=== PATIENT | male | born 1995 | race Two or more races ===

== ENCOUNTER 2022-02-19 06:27 | Emergency (ER) | payer OTHER, SELFPAY ==
[2022-02-19 06:34] VITALS: BP 152/94; PULSE 124; RESP 12; TEMP 36.8; O2SAT 99
[2022-02-19 07:00] VITALS: BP 135/91; PULSE 106; RESP 20; O2SAT 98
--- NOTE | 2022-02-19 07:04 | PC.NURSE ---
Report given to Louisa COLIN
--- NOTE | 2022-02-19 07:24 | ED.ALCOHOL ---
HPI - Alcohol General Chief Complaint: Alcohol Stated Complaint: ETOH withdrawal Time Seen by Provider: 02/19/22 07:15 Source: patient Mode of arrival: EMS Limitations: no limitations History of Present Illness HPI narrative: Patient is 26 years old male presents to the ED by ambulance because would like to stop drinking alcohol and is worried about developing seizure in the meantime. Patient was sober for 3 months, relapsed 1 month ago, drinking daily 8-10 beers a day, last drink was at 9 PM, this morning noticed that he have slight shaking fingers and is concerned about the possibility of developing seizure that is why he called 9 1. Patient had appointment with [facility] in 1 week. He is awake, alert and oriented x4, denies any fever, chills, nausea, vomiting, abdominal pain, headache. Related Data Allergies Allergy/AdvReac Type Severity Reaction Status Date / Time fentanyl AdvReac Unknown Verified 02/19/22 06:31 ketorolac [From Toradol] AdvReac Nose Bleed Verified 02/19/22 06:31 Review of Systems Review of Systems: All systems reviewed & are unremarkable except as noted in HPI and below Exam Narrative: General appearance: Well-developed, well-nourished Skin: Normal color Head: Normocephalic, nontraumatic Eyes: Clear conjunctiva ENT: Oropharynx normal, ears normal, nose normal Neck: Supple, nontender Chest and respiratory: Airway patent, no respiratory distress, no accessory muscle use Heart: Regular rate/rhythm Abdomen: Soft, nontender, no organomegaly, quiet bowel sounds Vascular: Normal peripheral pulses, normal capillary refill. Musculoskeletal: Normal range of motion, nontender back Neurologic: Alert and oriented ?3, [employer] is normal as tested, no gross motor deficit, light shaking hands Course Course Emergency Course: Patient decided to leave and continue alcohol withdrawal medication, he would like to quit drinking on his own, otherwise he is going back to drink until his appointment with [facility]. Vital Signs Vital signs: Vital Signs Temperature 36.8 C 02/19/22 06:34 Pulse Rate 124 H 02/19/22 06:34 Respiratory Rate 12 02/19/22 06:34 Blood Pressure 152/94 H 02/19/22 06:34 Pulse Oximetry 99 02/19/22 06:34 Temperature 36.8 C 02/19/22 06:34 Pulse Rate 124 H 02/19/22 06:34 Respiratory Rate 12 02/19/22 06:34 Blood Pressure 152/94 H 02/19/22 06:34 Pulse Oximetry 99 02/19/22 06:34 Critical Care Time Critical Care Time Critical Care Time: Yes Total Critical Care Time: 10 Discharge Plan Discharge Clinical Impression: Alcohol abuse Patient Disposition: Home, Self-Care Condition: Stable Instructions: Antibiotic Form, Abuse of Alcohol (ED) Additional Instructions: Return if symptoms are worsening , call your family physician for appointment, take Tylenol as as needed for aches and pain, continue home medications. Keep your appointment with [facility] Prescriptions: New lorazepam [Ativan] 1 mg tablet 1 mg PO TID PRN (Reason: alcohol withdrawal) Qty: 14 0RF thiamine HCl (vitamin B1) 50 mg tablet 50 mg PO DAILY Qty: 30 0RF multivitamin Tablet 1 tablet PO DAILY Qty: 14 0RF Follow-up/Referrals: Ramez,Justin Hemphill MD [Primary Care Provider] - Stand Alone Forms: Work/School Release IP
[2022-02-19] MEDS: THIAMINE HCL 200 MG/2 ML VIAL 100 MG IV PUSH (07:55)
[2022-02-19] MEDS: THERAPEUTIC MULTIVITAMINS/MINERALS TAB (*BKC) 1 TABLET PO (07:55)
[2022-02-19] MEDS: FOLIC ACID 1 MG/0.2 ML INJ IV PUSH (07:57)
[2022-02-19] MEDS: LORazepam INJ (*CRX) 2 MG/ML VIAL IV PUSH (07:59)
[2022-02-19 08:00] VITALS: BP 143/81; PULSE 90; RESP 20; O2SAT 98
[2022-02-19 08:45] VITALS: BP 116/72; PULSE 96; RESP 16; O2SAT 99
== END 2022-02-19 08:45 | disposition home or self-care (01) ==
PROVIDERS: Emergency Provider Emergency Medicine; PCP Internal Medicine
DX: F10.10 Alcohol abuse, uncomplicated (principal)
CPT/HCPCS: 96374; 96375; 99284; A9270; J2060; J3411